=== PATIENT | female | born 1980 | race Caucasian/White ===

== ENCOUNTER 2018-01-17 17:37 | Outpatient (REF) | payer OTHER, SELFPAY ==
--- NOTE | 2018-01-17 16:30 | PAPFT_PTH ---
PATIENT: Cindy Rincon LOC: [facility] U#:[id number] AGE/SX: 37/F ROOM: RE01/17/[address]: Alexandra Llanos APRN : 1980 BED: DIS: 01/17/2018 SPEC #: [id number] RECD: 01/17/18 18:18 STATUS: [place] RETigist #: [id number] JUANI: 01/17/18 16:[address]: Alexandra Llanos DEPT: [facility], [facility] Cytology RECD BY: Jihan Gardiner Tissues: 1 - CX/ENDOCX FOR PAP SMEARS Procedures: PAP THIN PREP/UVM Screening HPV DNA PROBE Comments: [id number]
== END 2018-01-17 17:57 ==
LOC: LBN 17:37
DX: Z12.4 Encounter for screening for malignant neoplasm of cervix (principal); Z11.51 Encounter for screening for human papillomavirus (HPV)
CPT/HCPCS: 88142; 87624

== ENCOUNTER 2018-01-24 08:58 | Outpatient (CLI) | payer OTHER, SELFPAY ==
[2018-01-24 10:29] LABS: ALT 21 U/L (12-78); AST 16 U/L (15-37); Albumin 3.7 g/dL (3.4-5.0); Alkaline Phosphatase 66 U/L (46-116); Anion Gap 8.3 mmol/L (3-11); BUN 12 mg/dL (7-18); Bilirubin, Total 0.9 mg/dL (0.2-1.0); CO2 27.7 mmol/L (21.0-32.0); CREATININE 0.82 mg/dL (0.55-1.02); Calcium 8.7 mg/dL (8.5-10.1); Chloride 106 mmol/L (98-107); Cholesterol 179 mg/dL (50-200); Glucose 85 mg/dL (70-100); HDL Cholesterol 57 mg/dL (40-60); LDL CHOLESTEROL 110 mg/dL (<100); Potassium 4.7 mmol/L (3.5-5.1); Sodium 142 mmol/L (136-145); Total Protein 7.2 g/dL (6.4-8.2); Triglyceride 67 mg/dL (30-150)
== END 2018-01-24 09:18 ==
DX: Z13.220 Encounter for screening for lipoid disorders (principal); Z13.228 Encounter for screening for other metabolic disorders
CPT/HCPCS: 36415; 80053; 80061; 83721

== ENCOUNTER 2018-06-06 08:11 | Day surgery (SDC) | payer OTHER, SELFPAY ==
--- NOTE | 2018-06-06 06:39 | W.PM.ENDDOP ---
Date of service: 06/06/18 Time of Service: 09:08 Endoscopy Report DATE OF PROCEDURE: 06/06/18 PRE-OP DIAGNOSIS: Abdominal pain/ Diarrhea POST-OP DIAGNOSIS: other (mild gastritis/ normal colon) PROCEDURE: 1. EGD with biopsies 2. Colonoscopy with random biopsies SURGEON: Carmen Webb ANESTHESIA: MAC (Lennox Dudley, SOFTWARE REVERSE ENGINEER/ ASA 2) ESTIMATED BLOOD LOSS: 10 PATHOLOGY: other (Gastric bx, terminal ileum Bx, right colon, transverse colon and left colon) COMPLICATIONS: None DISPOSITION: no change INDICATIONS: Mrs. Rincon is a pleasant 38 year old female who was seen in the office with abdominal pain and diarrhea which is intermittent. Risks, benefits and complications have been reviewed. Complications include but are not limited to bleeding, pain, perforation, missed small lesion/polyp, sore throat, aspiration and adverse reaction to the medications. Questions were entertained and answered to their satisfaction and they wished to proceed. No guarantees were given or implied. PREP: Miralax/Dulcolax PROCEDURE START TIME: :08 PROCEDURE END TIME: :51 COLONOSCOPY RETRACTION TIME: 25 minutes FINDINGS: Mild gastritis, normal duodenum and normal esophagus Normal colon. Random biopsies done of the colon. PROCEDURE DESCRIPTION: After informed consent was obtained the patient was take to the procedure room and placed in a supine position. Monitors were applied and a time out was done. The patients name, date of , procedure type, allergies to medications and metal in their body was reviewed. A bite block was placed and the patient was sedated. Once sedated and comfortable the gastroscope was advanced through the oropharynx which was grossly normal into the esophagus. The proximal and mid-esophagus and distal esophagus were normal. The scope was advanced into the stomach and through the pylorus into the 3rd portion of the duodenum. The duodenum was noted to be normal. Biopsies were done to rule out Celiac. The scope was retracted back into the stomach and biopsies were done to rule out H. pylori. There were no ulcers. The scope was retroflexed. The cardia and fundus were noted to be normal. There was no hiatal hernia noted. The scope was retracted back into the esophagus. The Z line was regular. The GE junction was at 35 cm. While the patient was still sedated they were placed in a left decubitous position. A rectal exam was done. External exam was normal. Internal exam revealed a normal sphincter tone and no palpable masses. The scope was then introduced and retro-flexed. Small internal hemorrhoids were identified. The scope was then advanced to the cecum without difficulty. The TI and appendiceal orifice were identified. The prep was good. The sscope was advanced into the terminal ileum for 10 cm and biopsies were done. No inflammation of ulcers were noted. The scope was then slowly retracted over 25 minutes back into the rectum. Random biopsies were done of the left colon, transverse colon and right colon to rule out microscopic colitis. The scope was removed and the patient was woken up and taken back to Same day surgery in stable condition. The patient tolerated the procedure well and there were no immediate complications. Follow up: I will call patient with results.
--- NOTE | 2018-06-06 06:40 | W.PM.DSUDISC ---
Discharge Plan Disposition Patient Disposition: HOME Condition: Good Discharge Details Reason For Visit: abdominal pain and diarrhea Attending Provider: Carmen Webb Primary Care Provider: Alexandra Llanos Home Meds and New Rx's Prescriptions: New ranitidine HCl [Zantac] 150 mg tablet 150 mg PO DAILY Qty: 30 RF: 0 Continued fexofenadine 180 mg tablet 180 mg PO DAILY PRNRF: 0 norgestimate-ethinyl estradiol 0.18/0.215/0.25 mg-35 mcg (28) tablet 1 tab PO DAILY Qty: 84 RF: 4 Ashghawandha 2 drp PO DAILY RF: 0 cholecalciferol (vitamin D3) [Vitamin D3] 1,000 unit Capsule 1,000 unit PO BID RF: 0 Discharge Instructions Instructions: Colonoscopy (DC), Upper Endoscopy (DC) Additional Instructions: Findings: Mild gastritis otherwise normal Follow up:I will call you with results and discuss next steps Please call if you develop: fevers >101.5 Nausea or Vomiting Abdominal pain that is not transient DAY SURGERY UNIT POST COLONOSCOPY INSTRUCTIONS 1. Because there will be medication in your system for the next 24 hours, you may feel a little sleepy. Your coordination will be affected. Therefore: a. Do not drive or operate dangerous equipment for 24 hours. b. Do not drink alcohol beverages for 24 hours (not even beer). c. Plan to go home and rest for the day. 2. Generally there are no restrictions on your activity after a day or so has gone by, but you may feel a bit fatigued for a few days. 3 After you arrive home you may have a light meal and return to a normal diet as you can tolerate it without feeling sick to your stomach. 4. After surgery, you may feel pain or discomfort. This should be only transient, but if it persists please contact your doctor. 5. If there are any questions regarding the findings of your procedure, please feel free to contact your doctor. 6. If you are unable to contact your doctor with a problem, contact the hospital at [phone]. 7. Continue all your regular medications unless directed otherwise. I understand the above instructions and have no questions. Signature of Patient or Responsible Adult Escort Date/Time Name of Responsible Adult Escort Signature of Nurse Date/Time Activity:: Activity as Tolerated Diet:: As Tolerated Discharge Orders Discharge Orders: Discharge Order (Routine); Ordered 06/06/18 Ordered By: Carmen Webb DS: Diagnosis Discharge Diagnosis (1) S/P colonoscopy: Status: Acute (2) H/O esophagogastroduodenoscopy: Status: Chronic (3) Gastritis: Status: Acute
[2018-06-06 08:29] VITALS: BP 118/74; PULSE 67; RESP 16; TEMP 36.3; O2SAT 100
[2018-06-06] MEDS: Lactated Ringers 1,000 ML 80 ML IV (08:45)
--- NOTE | 2018-06-06 09:11 | BOWEL_PTH ---
PATIENT: Cindy Rincon LOC: [facility] U#:[id number] AGE/SX: 38/F ROOM: RE06/06/[address]: Carmen Webb MD : 1980 BED: DIS: 06/06/2018 SPEC #: [id number] RECD: 06/06/18 12:49 STATUS: [place] RE #: [id number] JUANI: 06/06/18 09:[address]: Carmen Webb DEPT: Surgical Specimen RECD BY: Jihan Gardiner ENTERED: 06/06/18 12:52 SP TYPE: Bowel OTHR DR: Alexandra Llanos APRN Tissues: 1 - BIOPSY BOWEL 2 - STOMACH BIOPSY 3 - BIOPSY BOWEL 4 - BIOPSY BOWEL 5 - BIOPSY BOWEL 6 - BIOPSY BOWEL Procedures: GROSS AND MICRO LEVEL 4 Comments: [id number]
[2018-06-06 10:21] VITALS: BP 108/75; PULSE 58; RESP 16; TEMP 36; O2SAT 100
== END 2018-06-06 10:52 | disposition home or self-care (01) ==
LOC: SUR 08:12
PROVIDERS: Visit Provider Surgery
PROC: (CPT 45380; principal; 2018-06-06 09:15)
DX: R19.7 Diarrhea, unspecified (principal); K64.0 First degree hemorrhoids; R10.30 Lower abdominal pain, unspecified; K31.89 Other diseases of stomach and duodenum
CPT/HCPCS: 45380; 43239; 81025; 88305

== ENCOUNTER 2019-02-02 09:32 | Outpatient (CLI) | payer OTHER, SELFPAY ==
[2019-02-02 11:01] LABS: ALT 19 U/L (14-59); AST 12 U/L (15-37); Albumin 3.7 g/dL (3.4-5.0); Alkaline Phosphatase 56 U/L (46-116); Anion Gap 7.5 mmol/L (3-11); BUN 12 mg/dL (7-18); Bilirubin, Total 0.6 mg/dL (0.2-1.0); CO2 27.5 mmol/L (21.0-32.0); Calcium 8.7 mg/dL (8.5-10.1); Chloride 106 mmol/L (98-107); Glucose 84 mg/dL (70-100); Potassium 4.9 mmol/L (3.5-5.1); Sodium 141 mmol/L (136-145); Total Protein 6.9 g/dL (6.4-8.2)
== END 2019-02-02 09:52 ==
DX: Z00.00 Encounter for general adult medical examination without abnormal findings (principal); Z13.228 Encounter for screening for other metabolic disorders
CPT/HCPCS: 36415; 80053

== ENCOUNTER 2019-02-26 20:05 | Outpatient (REF) | payer OTHER, SELFPAY | END 2019-02-26 20:25 | LOC: LBN 20:05 | PROVIDERS: Visit Provider Nurse Practitioner Women's Health | DX: R30.0 Dysuria (principal) | CPT/HCPCS: 87077; 87086; 87186 ==

== ENCOUNTER 2019-07-18 02:09 | Outpatient (CLI) | payer OTHER, SELFPAY ==
--- NOTE | 2019-07-18 13:00 | DI.CT_ITS ---
EXAM: CT HEAD CERVICAL SPINE WO CLINICAL HISTORY: head injury, S09.90XA. TECHNIQUE: Imaging Protocol: Axial computed tomography images with coronal and sagittal reformatted images were created and reviewed COMPARISON: No exams were available for comparison FINDINGS: Head CT Ventricles and Extra axial spaces: Normal in size and morphology for the patient's age. Hemorrhage: None. Cerebral parenchyma: Normal. Midline shift: None. Brainstem/Cerebellum: Normal. Calvarium: Normal. Visualized Paranasal sinuses/Mastoids: Clear. IMPRESSION: Negative head CT. FINDINGS: Cervical Spine CT BONES: Vertebral body heights are maintained. Intervertebral disc spaces are normal. Alignment is nor mal. There is no evidence of acute fracture. SOFT TISSUES: No paraspinal hematoma. The airway appears intact. IMPRESSION: Negative CT of the cervical spine. RADIATION DOSE DELIVERED: DATA REPOSITORY: All CT scans at this facility are submitted to the National Radiology Data Registry (NRDR) Dose Index Registry (DIR) with the [employer] (ACR). RADIATION OPTIMIZATION: All CT scans at this facility use at least one of these dose optimization te chniques: automated exposure control; mA and/or kV adjustment per patient size (includes targeted exa ms where dose is matched to clinical indication); or iterative reconstruction.
== END 2019-07-18 02:29 ==
PROVIDERS: Visit Provider Internal Medicine
DX: M54.2 Cervicalgia (principal); S09.8XXA Other specified injuries of head, initial encounter
CPT/HCPCS: 70450; 72125

== ENCOUNTER 2020-01-28 02:08 | Outpatient (CLI) | payer OTHER, SELFPAY ==
[2020-01-28 10:13] LABS: ALT 19 U/L (14-59); AST 13 U/L (15-37); Albumin 3.6 g/dL (3.4-5.0); Alkaline Phosphatase 50 U/L (46-116); Anion Gap 9.1 mmol/L (3-11); BUN 13 mg/dL (7-18); Bilirubin, Total 0.8 mg/dL (0.2-1.0); CO2 25.9 mmol/L (21.0-32.0); CREATININE 0.81 mg/dL (0.55-1.02); Calcium 8.8 mg/dL (8.5-10.1); Chloride 105 mmol/L (98-107); Glucose 84 mg/dL (74-106); Potassium 4.5 mmol/L (3.5-5.1); Sodium 140 mmol/L (136-145); Total Protein 6.7 g/dL (6.4-8.2)
== END 2020-01-28 02:28 ==
DX: Z00.00 Encounter for general adult medical examination without abnormal findings (principal); K90.0 Celiac disease; N39.3 Stress incontinence (female) (male)
CPT/HCPCS: 36415; 80053

== ENCOUNTER 2020-03-10 12:54 | Outpatient (REF) | payer OTHER, SELFPAY ==
[2020-03-12 16:55] LABS: Chlamydia Result Negative (Negative)
[2020-03-12 16:56] LABS: GC Result Negative (Negative)
== END 2020-03-10 13:14 ==
LOC: LBN 12:54
DX: R10.2 Pelvic and perineal pain (principal); N89.8 Other specified noninflammatory disorders of vagina
CPT/HCPCS: 87491; 87591; 87480; 87510; 87660

== ENCOUNTER 2020-03-20 01:21 | Outpatient (CLI) | payer OTHER, SELFPAY ==
--- NOTE | 2020-03-20 06:45 | DI.US_ITS ---
EXAM: US PELVIS TRANSVAGINAL CLINICAL HISTORY: Pelvic and low lumbar bilateral pain with vaginal DISCHARGE,R10.2,N98.8. TECHNIQUE: Transabdominal and transvaginal pelvic ultrasound was performed using standard protocol. COMPARISON: US OB ASSESSMENT - WEIGHT/GLORIA from 04/29/2015 FINDINGS: KIDNEYS: Kidneys are symmetric in size. No evidence of renal calculi. No evidence of hydronephrosis. No renal mass or cyst identified. UTERUS: Position: Anteverted. Size: 7.2 long by 3.5 AP by 4.9 transverse cm Endometrium: 0.5 cm. Normal for patient's menstrual status. Myometrium: 4 mm echogenic focus in the posterior midbody of the uterus. This may represent a calcif ied uterine fibroid. Cervix: Unremarkable. OVARIES: Right: 2.8 x 1.7 x 1.6 cm Cyst or mass: Small follicular cysts. Left: 2.9 x 1 x 1.4 cm Cyst or mass: Small follicular cysts. DOPPLER: Color: Symmetric and uniform flow to both ovaries. No hyperemia. Duplex: Normal ovarian arterial waveforms visualized. CUL-DE-SAC: Free fluid: None. Other: None. IMPRESSION: 1. Normal sonographic appearance of the kidneys. 2. Normal-appearing uterus with endometrial stripe within normal limits. 3. Unremarkable bilateral ovaries. DATA REPOSITORY:
== END 2020-03-20 01:41 ==
DX: R10.2 Pelvic and perineal pain (principal); N89.8 Other specified noninflammatory disorders of vagina
CPT/HCPCS: 76830; 76856

== ENCOUNTER 2020-05-12 16:03 | Emergency (ER) | payer OTHER, SELFPAY ==
[2020-05-12] VITALS (25 sets, daily range): BP systolic 114–129; BP diastolic 60–75; PULSE 62–87; RESP 12–20; TEMP 36.4–36.6; O2SAT 97–100
--- NOTE | 2020-05-12 16:18 | ED.GENADUL_ITS ---
Discharge Plan Disposition Patient Disposition: HOME Condition: Stable Discharge Details Clinical Impression: Allergic reaction Primary Care Provider: Alexandra Llanos ED Provider: Marianne Jain Home Meds and New Rx's Prescriptions: New prednisone 20 mg tablet 40 mg PO DAILY Qty: 8 RF: 0 epinephrine [EpiPen] 0.3 mg/0.3 mL auto-injector 0.3 mg IM ONCE Qty: 1 RF: 0 No Action Adult Multivitamin Gummies 200 mcg tablet,chewable PO RF: 0 norgestimate-ethinyl estradiol 0.18/0.215/0.25 mg-35 mcg (28) tablet 1 tab PO DAILY Qty: 84 RF: 4 cholecalciferol (vitamin D3) [Vitamin D3] 1,000 unit Capsule 1,000 unit PO BID RF: 0 Discharge Instructions Instructions: General Allergic Reaction (ED) Additional Instructions: You have elected to leave for the recommended 4-hour observation period has been completed. The risks of doing so are permanent disability or . You may return to the emergency department at anytime if you change your mind. Please return immediately to the emergency department if you develop any new or worsening symptoms, if your condition does not improve as expected, or if you become otherwise concerned. It is extremely important that you call soon as possible to make an appointment to be seen in follow-up for this visit by your primary care doctor. Please contact the Department of Health as we discussed regarding your second COVID-19 vaccination dose. Referrals: Alexandra Llanos, BEATER ENGINEER HELPER [Primary Care Provider] - Discharge Data Discharge Date/Time-TO BE ENTERED AT DEPARTURE: 05/12/20 19:12 Medical Decision Making Cindy Rincon is a 40-year-old woman without reported history of major medical problems who presented to the emergency department with itchy rash to her scalp, bilateral forearms, upper back after receiving first dose of COVID-19 vaccination approximately 40 minutes prior to arrival. On exam patient is well and nontoxic-appearing. There is no facial or oropharyngeal edema, lungs are clear to auscultation, patient speaking in full sentences. There is confluent erythema bilateral dorsal forearms without urticaria. No other rash noted. Concern for likely allergic reaction to first dose COVID-19 vaccination. Exam/history is not consistent with impending airway compromise. Plan for Benadryl, Pepcid, Solu-Medrol, IV fluid hydration, IV, telemetry. Will monitor and reassess. 1645 patient reports rash and itching somewhat improved, she reports feeling a sensation of throat tightness since receiving Benadryl. Normal voice. Exam of the oropharynx unchanged from examination upon arrival. Pt reports feeling the need to clear her throat repeatedly. Given new concern for possible airway involvement, plan for IM epinephrine. Will continue to monitor. 1705 patient reports feeling significantly improved after epinephrine. Will continue to monitor. Pt reporting no further symptoms, feels well and at baseline. Pt requests d/c to home. 4 hour observation period has not passed, concern for possible rebound symptoms which I relyaed to the Pt, including risk of /permanent disability. Pt verbalizes understanding of the risks, continues to wish to leave. Plan for rx prednisone, epipen. I had a lengthy discussion with Patient regarding return to emergency department precautions, home care, home use of epi-pen, and importance of outpatient follow-up. Pt verbalizes understanding of the plan and is amenable. Patient discharged to home with clear plan for outpatient follow-up. All questions were answered. Disposition decision was made weighing the risks and benefits of hospitalization versus outpatient treatment, the risk for further decompensation, and the patient's wishes. Medical Records Medical records reviewed: Yes I reviewed the patient's medical records. HPI General Mode of arrival: ambulatory . Date/Time Provider Initiated Documentation: 05/12/20 16:13 . Limitations to Documentation: no limitations . Information obtained by: patient, RN notes reviewed and old records reviewed . HPI Narrative: Cindy Rincon is a 40-year-old woman without reported history of major medical problems presenting to the emergency department with allergic reaction. Patient reports that approximately 40 minutes prior to arrival she received the first dose of the Covid-19 vaccination. Patient reports that approximately 5 minutes ago she developed itching in her posterior scalp and then noticed redness and itching of bilateral forearms. Patient also reports mild itching of her upper back. She denies any other rash. She denies swelling of her face/lips/tongue, throat tightness, shortness of breath. Patient denies any pain. Patient reports that she was previously in her usual state of health: No fever, vomiting, diarrhea, cough, numbness, weakness. Patient reports that she has a known allergy to Keflex: She developed rash after taking Keflex as a child but has not had it since. She denies any other known allergies. She denies any other known new exposures today. Related Data Home Medications Medication Instructions Recorded Confirmed cholecalciferol (vitamin D3) 1,000 unit PO BID 06/02/18 05/12/20 [Vitamin D3] multivitamin with minerals-folic mcg PO 07/09/19 03/13/20 acid 200 mcg chewable tablet norgestimate-ethinyl estradiol 1 tab PO DAILY #84 tab 07/19/19 05/12/20 0.18 mg/0.215mg/0.25mg-35 mcg(28)tablet epinephrine [EpiPen] 0.3 mg IM ONCE #1 ea 05/12/20 prednisone 40 mg PO DAILY #8 tab 05/12/20 Previous Rx's Medication Instructions Recorded norgestimate-ethinyl estradiol 1 tab PO DAILY #84 tab 07/19/19 0.18 mg/0.215mg/0.25mg-35 mcg(28)tablet epinephrine [EpiPen] 0.3 mg IM ONCE #1 ea 05/12/20 prednisone 40 mg PO DAILY #8 tab 05/12/20 Allergies Allergy/AdvReac Type Severity Reaction Status Date / Time cephalexin monohydrate Allergy Severe Skin Rash Verified 05/12/20 16:23 [From L[place]] COVID-19 Virus Vaccines Allergy Intermediate Itchy Verified 05/22/20 17:02 Scalp, forearms,throat tightness General Stated Complaint: Allergic JESÚS: 2 Review of Systems Narrative: Constitutional: denies fevers Eyes: denies eye pain ENT: denies ear pain, dental pain, sore throat, facial swelling/lip swelling/tongue swelling/throat tightness Cardiovascular: denies chest pain, edema Respiratory: denies SOB, cough GI: denies abdominal pain, vomiting, diarrhea : denies flank pain MSK: denies back pain, neck pain, reports myalgia at injection site left upper arm Skin: Reports itching, rash as per HPI Neuro: denies headaches, numbness, weakness PFSH Medical History Adult celiac disease Suggested per scope pathology 05/2018 Alcohol intake above recommended sensible limits Encounter for annual physical exam Idiopathic Narcolepsy Pelvic pain Stress and adjustment reaction Stress incontinence Umbilical hernia Surgical History section (06/25/15) PCD for arrest of dilation. 41w3d. Ivelisse Mckeon. aoc/DD. Removal benign lesion R breast skin Removal benign lump R axilla 2011 Family History Father Essential hypertension Heart disease Hyperlipidemia Alcohol abuse Lung cancer Mother Leukemia Sister Fibroid of cervix Brother No problems noted. Maternal Grandfather Skin cancer Paternal Grandmother Essential hypertension Diabetes Son No problems noted. Daughter No problems noted. Social History Smoking/Tobacco Use Status: Former Tobacco Use Quit Date: 05/09/12 Tobacco: How many years used: 5 Second Hand Exposure: Yes Smoking risk assessment performed?: Yes Alcohol Intake: current Alcohol Intake frequency: 3 or more drinks per day Alcohol type: wine Drug use: Never Substance use type: does not use Counseling given: No Counseling provided: none Caregiver/Support person: No Household members: spouse, children and other Details: 4 Housing: house Communication Needs: None Do you need help understanding health information?: Never current occupation: [employer] Pets and animals: Yes Pets and animals: cat(s) and dog(s) Sexually active: Yes Do you think of yourself as: straight/heterosexual Current gender identity: female What is your relationship status?: How often do you talk on the phone with friends or family?: three or more times per week How often do you get together with friends or relatives?: twice per week How often do you attend jainism or yazidi services?: 1-3 times per year Do you belong to any clubs or organized social groups?: yes Panel score (0-1 are the most socially isolated patients): 3 What type of physical activity do you participate in: none and additional Details: Volleyball in season Duration: < 15 minutes/day Frequency: 1-2 times per week Makenna/Cheondoism: Scientologist Special makenna needs: No Seatbelt use: always Helmet use: No Drive intox or ride w/intox industrial truck driver: No Do you feel safe at home: Yes Do you feel safe in your relationship?: Yes Exam Narrative Exam Narrative: Constitutional: well and [id number], pleasant, conversing normally HENT: head atraumatic/normocephalic/normal inspection, mucous membranes moist, no edema of the lips or tongue, normal posterior pharynx, no intraoral lesion, normal voice Eyes: conjunctiva normal, sclera normal, pupils 3mm b/l Neck: no stridor, normal ROM, trachea midline, normal inspection of posterior neck Chest: normal inspection Resp: normal work of breathing, LCTAB Cardio: normal rate, normal rhythm, no murmur appreciated Back: normal inspection of the upper back Skin: warm, dry, normal color, fine urticaria with erythema b/l dorsal and volar forearms Neuro: alert, not altered, grossly non-focal, normal tone Ext: no edema Psych: normal mood, normal affect, normal behavior Course Vital Signs Vital signs: Vital Signs Temperature 36.4 C L 05/12/20 16:08 Pulse 70 05/12/20 16:08 Respiratory Rate 16 05/12/20 16:08 Blood Pressure 126/75 05/12/20 16:08 Pulse Oximetry 100 05/12/20 16:08 Temperature 36.4 C L 05/12/20 16:08 Temperature Source Skin 05/12/20 16:08 Pulse 70 05/12/20 16:08 Respiratory Rate 16 05/12/20 16:08 Blood Pressure 126/75 05/12/20 16:08 Blood Pressure Position Sitting 05/12/20 16:08 Pulse Oximetry 100 05/12/20 16:08 Oxygen Delivery Method Room Air 05/12/20 16:08 Oxygen Flow Rate 0 05/12/20 16:08 Pain Level 2 05/12/20 16:08
[2020-05-12] MEDS: methylPREDNISolone SUCC 125 MG VIAL IVP (16:26)
[2020-05-12] MEDS: Normal Saline 1,000 ML 1000 ML IV (16:26)
[2020-05-12] MEDS: diphenhydrAMINE 50 MG/ML VIAL IVP (16:29)
[2020-05-12] MEDS: FAMOTIDINE 20 MG/50 ML BAG 200 MG IVPB (16:30)
[2020-05-12] MEDS: EPINEPHrine 1 MG/ML AMP pres-free (16:48)
[2020-05-12] MEDS: Normal Saline Flush 10 ML SYR IVP (17:21)
== END 2020-05-12 19:12 | disposition home or self-care (01) ==
PROVIDERS: Emergency Provider Student in an Organized Health Care Education/Training Program
DX: R21 Rash and other nonspecific skin eruption (principal); T50.B95A Adverse effect of other viral vaccines, initial encounter
CPT/HCPCS: 96361; 96374; 96375; 99284; J0171; J1200; J2930

== ENCOUNTER 2020-11-20 09:51 | Outpatient (REF) | payer OTHER, SELFPAY | END 2020-11-20 09:52 | disposition home or self-care (01) | LOC: LBN 09:51 | PROVIDERS: Visit Provider Nurse Practitioner Family | DX: R30.0 Dysuria (principal) | CPT/HCPCS: 87077; 87086; 87186 ==

== ENCOUNTER 2021-01-29 11:35 | Outpatient (REF) | payer OTHER, SELFPAY ==
--- NOTE | 2021-01-29 11:15 | PAPFT_PTH ---
PATIENT: Cindy Rincon LOC: [facility] U#:[id number] AGE/SX: 40/F ROOM: RE01/29/[address]: Alexandra Llanos APRN : 1980 BED: DIS: 01/29/2021 SPEC #: [id number] RECD: 01/29/21 12:59 STATUS: [facility] REQ #: [id number] JUANI: 01/29/21 11:[address]: Alexandra Llanos DEPT: [facility] Cytology RECD BY: Jihan Gardiner Tissues: 1 - CX/ENDOCX FOR PAP SMEARS Procedures: PAP THIN PREP/UVM Screening HPV DNA PROBE Comments: [id number]
== END 2021-01-29 11:36 | disposition home or self-care (01) ==
LOC: LBN 11:35
DX: Z12.4 Encounter for screening for malignant neoplasm of cervix (principal); Z11.51 Encounter for screening for human papillomavirus (HPV)
CPT/HCPCS: 88142; 87624

== ENCOUNTER 2021-02-03 03:55 | Outpatient (CLI) | payer OTHER, SELFPAY ==
[2021-02-03 09:01] LABS: Anion Gap 7.3 mmol/L (3-11); BUN 13 mg/dL (7-18); CO2 28.7 mmol/L (21.0-32.0); Calcium 9.2 mg/dL (8.5-10.1); Chloride 104 mmol/L (98-107); Glucose 89 mg/dL (74-106); Potassium 4.7 mmol/L (3.5-5.1); Sodium 140 mmol/L (136-145)
== END 2021-02-03 03:56 | disposition home or self-care (01) ==
LOC: LBO 03:56
DX: Z00.00 Encounter for general adult medical examination without abnormal findings (principal)
CPT/HCPCS: 36415; 80048

== ENCOUNTER 2021-06-23 18:32 | Outpatient (REF) | payer OTHER, SELFPAY | END 2021-06-23 18:33 | disposition home or self-care (01) | LOC: LBN 18:32 | PROVIDERS: Visit Provider Family Medicine | DX: R31.9 Hematuria, unspecified (principal) | CPT/HCPCS: 87086 ==

== ENCOUNTER 2021-10-16 20:12 | Outpatient (REF) | payer OTHER, SELFPAY | END 2021-10-16 20:13 | disposition home or self-care (01) | LOC: LBN 20:12 | PROVIDERS: Visit Provider Nurse Practitioner Family | DX: N39.0 Urinary tract infection, site not specified (principal) | CPT/HCPCS: 87077; 87086; 87186 ==

== ENCOUNTER 2021-12-02 17:47 | Emergency (ER) | payer OTHER, SELFPAY ==
[2021-12-02 18:12] VITALS: BP 136/105; PULSE 59; RESP 18; TEMP 36.8; O2SAT 100
[2021-12-02] MEDS: Ketorolac 30 MG/ML VIAL IVP (18:49)
[2021-12-02] MEDS: Prochlorperazine 10 MG/2 ML VIAL IVP (18:49)
[2021-12-02] MEDS: Normal Saline 1,000 ML 1000 ML IV (18:49)
[2021-12-02] MEDS: diphenhydrAMINE 50 MG/ML VIAL 25 MG IVP (18:49)
--- NOTE | 2021-12-02 19:30 | ED.GENADUL_ITS ---
Discharge Plan Disposition Patient Disposition: HOME Condition: Improving Discharge Details Clinical Impression: Headache associated with infection, COVID Primary Care Provider: Alexandra Llanos ED Provider: Sd Love Home Meds and New Rx's Prescriptions: No Action cyclobenzaprine 7.5 mg tablet 7.5 mg PO QHS MDD 7.5mg PRN (Reason: muscle spasm) Qty: 10 0RF Adult Multivitamin Gummies 200 mcg tablet,chewable PO phenazopyridine [Pyridium] 200 mg tablet 200 mg PO Q8H PRN (Reason: pain) Qty: 10 0RF norgestimate-ethinyl estradiol 0.18/0.215/0.25 mg-35 mcg (28) tablet 1 tab PO DAILY Qty: 84 4RF cholecalciferol (vitamin D3) [Vitamin D3] 1,000 unit Capsule 1,000 unit PO BID epinephrine [EpiPen] 0.3 mg/0.3 mL auto-injector 0.3 mg IM ONCE Qty: 1 0RF Rx Instructions: as a single dose Discharge Instructions Instructions: General Headache (ED), COVID-19 (Coronavirus Disease 2019) (ED) Additional Instructions: Continue to stay well-hydrated and you may use [id number] ibuprofen after 4 AM in the morning for any further headache or body aches. If you have any new or significant worsening of symptoms feel free to return to the emergency department for reassessment otherwise follow-up with primary care provider if not improving or if you have had cold symptoms greater than 7 to 10 days Referrals: Alexandra Llanos, [facility] [Primary Care Provider] - (As needed for reassessment) Discharge Data Discharge Date/Time-TO BE ENTERED AT DEPARTURE: 12/02/21 19:45 Medical Decision Making Patient presenting to the emergency department for chief complaint of headache. Patient reports that headache started on Tuesday and had slightly improved but then was still not feeling well the next day and tested positive for COVID. Patient has been quarantining but today headache returned and has had significant migraine type symptoms with photophobia. Patient is taking acetaminophen with no benefit. Physical exam shows photophobia otherwise no meningeal signs, no focal neurological deficits, and exam otherwise unremarkable. We will plan to treat with fluids, ketorolac, Benadryl, and Compazine. Patient reassessed and states significant improvement of symptoms. I feel that headache is secondary to viral illness. Discussed with patient at home management of symptoms along with return and follow-up precautions. I see no indication for further testing at this time. Did discuss with patient potential use of antivirals but given that she has otherwise healthy with no significant risk factors she decided to not take these medications which I agree with at this time. After discussion of diagnosis and plan of care patient has no f urther needs, questions, or concerns and states clear understanding to return to the emergency department for any worsening symptoms. This documentation was generated using [employer] dictation system, please disregard any oddities of phrase or misspellings. HPI General Mode of arrival: ambulatory . Date/Time Provider Initiated Documentation: 12/02/21 18:26 . Limitations to Documentation: no limitations . Information obtained by: patient . History of Present Illness 41 year old F presents to the emergency department with the chief complaint of Headache with recent diagnosis of COVID, described as moderate, with intensity rated at 5. Quality is described as aching, and is localized to the head. Patient reports no radiation. Patient started experiencing this day(s) (4) and it has been intermittent. No relieving factors improve symptom(s), No exacerbating factors reported . Patient notes fever/chills and malaise. Patient did receive the following treatments prior to arrival, other (Acetaminophen) Related Data Home Medications Medication Instructions Recorded Confirmed cholecalciferol (vitamin D3) 25 1,000 unit PO BID 06/02/18 12/02/21 mcg (1,000 unit) capsule (Vitamin D3) multivitamin with minerals-folic mcg PO 07/09/19 10/16/21 acid 200 mcg chewable tablet (Adult Multivitamin Gummies) epinephrine 0.3 mg/0.3 mL 0.3 mg (0.3 mL) IM ONCE #1 ea 05/12/20 12/02/21 injection, auto-injector (EpiPen) phenazopyridine 200 mg tablet 200 mg PO Q8H PRN pain #10 tabs 06/23/21 12/02/21 (Pyridium) cyclobenzaprine 7.5 mg tablet 7.5 mg PO QHS PRN muscle spasm #10 08/27/21 12/02/21 tabs norgestimate-ethinyl estradiol 1 tab PO DAILY #84 tabs 10/28/21 12/02/21 0.18 mg/0.215mg/0.25mg-35 mcg(28)tablet Previous Rx's Medication Instructions Recorded epinephrine 0.3 mg/0.3 mL 0.3 mg (0.3 mL) IM ONCE #1 ea 05/12/20 injection, auto-injector (EpiPen) phenazopyridine 200 mg tablet 200 mg PO Q8H PRN pain #10 tabs 06/23/21 (Pyridium) cyclobenzaprine 7.5 mg tablet 7.5 mg PO QHS PRN muscle spasm #10 08/27/21 tabs norgestimate-ethinyl estradiol 1 tab PO DAILY #84 tabs 10/28/21 0.18 mg/0.215mg/0.25mg-35 mcg(28)tablet Allergies Allergy/AdvReac Type Severity Reaction Status Date / Time cephalexin monohydrate Allergy Severe Skin Rash Verified 12/02/21 18:19 [From [employer]] COVID-19 Virus Vaccines Allergy Severe Anaphylactic Verified 12/02/21 18:19 RXN, Itchy Scalp, forearms,throat tightness General Stated Complaint: Headache JESÚS: 4 Review of Systems Constitutional Constitutional: Reports body ache(s), Denies chills, Reports fatigue, Denies fever(s), Reports headache(s) and Reports malaise Eyes Eyes: Denies change in vision and Reports photophobia ENT Ears, Nose, Mouth, and Throat: Denies dizziness and Reports headache(s) Cardiovascular Cardiovascular: Denies chest pain, Denies syncope and Denies dyspnea Respiratory Respiratory: Denies cough, Denies pain with cough and Denies dyspnea Gastrointestinal Gastrointestinal: Denies abdominal pain, Denies nausea and Denies vomiting Musculoskeletal Musculoskeletal: Reports myalgias Integumentary/Breasts Skin/Breast: Denies rash Neurologic Neurologic: Reports as per HPI, Denies dizziness, Denies syncope, Reports headache(s) and Denies sensory deficit Endocrine Endocrine: Reports fatigue PFSH All Active Problems (Updated 12/02/21 @ 19:33 by Sd Love NP) Headache associated with infection (Acute) COVID (Acute) Frequent urinary tract infections (Acute) Spasm of muscle of lower back (Acute) Lumbar back pain with radiculopathy affecting right lower extremity (Chronic) radiates to right hip - since 2021 Allergy, food (Chronic) Adult celiac disease (Chronic) Suggested per scope pathology 05/2018 Umbilical hernia (Chronic) Sciatica (Chronic 08/11/11) left hip Medical History Change in bowel function Urgent and loose stools after exercise with small umbilical hernia. Refer to general surgeon for evaluation. Chronic rhinitis Dyspareunia (04/16/13) Idiopathic Narcolepsy Neck pain Pelvic pain Stress and adjustment reaction Stress incontinence Upper airway resistance syndrome (11/30/13) [facility]; 11/30/13 [facility]; 01/03/14 RX METHYLPHENIDATE PER SLEEP CLINIC Surgical History (Updated 09/18/21 @ 15:03 by Alexandra Llanos NP) section (06/25/15) PCD for arrest of dilation. 41w3d. Ivelisse Mckeon. aoc/DD. H/O esophagogastroduodenoscopy (~06/06/18) Removal benign lesion R breast skin Removal benign lump R axilla 2012 S/P colonoscopy (~06/06/18) Family History (Updated 01/30/21 @ 15:48 by Kathy White) Father , 72 Essential hypertension Heart disease Hyperlipidemia Alcohol abuse Lung cancer Mother Leukemia Sister Fibroid of cervix Brother No problems noted. Maternal Grandfather Skin cancer Paternal Grandmother Essential hypertension Diabetes Son No problems noted. Daughter No problems noted. Social History (Updated 01/30/21 @ 15:47 by Kathy White) Smoking/Tobacco Use Status: Former Tobacco Use tobacco type: cigarettes Quit Date: 05/09/12 Tobacco: How many years used: 5 Second Hand Exposure: Yes Smoking risk assessment performed?: Yes Alcohol Intake: current Alcohol Intake frequency: a few times a week Alcohol type: wine Drug use: Never Substance use type: does not use Counseling given: No Counseling provided: none Household members: spouse and children Housing: house Communication Needs: None Do you need help understanding health information?: Rarely current occupation: HIGH LIFT OPERATOR [employer] Pets and animals: Yes Pets and animals: cat(s), dog(s), horse(s) and farm animals Sexually active: Yes Do you think of yourself as: straight/heterosexual Current gender identity: female What is your relationship status?: How often do you talk on the phone with friends or family?: three or more times per week How often do you get together with friends or relatives?: three or more times per week How often do you attend anabaptist or evangelical services?: 1-3 times per year Do you belong to any clubs or organized social groups?: yes Panel score (0-1 are the most socially isolated patients): 3 What type of physical activity do you participate in: bicycling, weight lifting and yoga Duration: 45-60 minutes/day Frequency: 5-6 times per week Makenna/Taoist: Christianity Special makenna needs: No Seatbelt use: always Helmet use: Yes Helmet use: always Drive intox or ride w/intox charter driver: No Do you feel safe at home: Yes Do you feel safe in your relationship?: Yes Female Reproductive History Menstrual Date of last menstrual period: 11/27/21 Exam Const General: cooperative, healthy appearing, no acute distress and well groomed Orientation: alert, awake and oriented x3 HENMT Head: normal to inspection Ears: hearing grossly normal bilaterally and TM's normal bilaterally Mouth: oral mucosae normal and moist mucous membranes Throat: posterior oropharynx normal Eyes Visual Olivo: normal visual olivo by confrontation Alignment and Position: alignment normal Periorbital: periorbital findings normal Eyelids: eyelids normal Sclera: sclerae normal Pupils: PERRL EOM: EOM intact bilaterally Direct ophthalmoscopy: photophobia Neck Neck: normal visual inspection, full ROM, no lymphadenopathy and no meningeal signs Resp Effort & Inspection: normal respiratory effort and able to speak in complete sentences Auscultation: clear to auscultation bilaterally Cardio Rate: regular rate Rhythm: regular rhythm Heart Sounds: S1 normal and S2 normal Neuro General: patient alert, patient awake, patient oriented x3, gait normal, tone normal, moves all extremities, CN's II-XI intact bilaterally and not confused Cognition: normal cognition Speech: speech normal Motor: muscle tone normal throughout, strength 5/5 throughout, no pronator drift, no movement abnormalities noted and no fasciculations Sensory Exam: no sensory deficits noted Coordination: [id number] test normal, Romberg test normal, Does not sway with eyes open, rapid alternating movement UE normal and rapid alternating movement LE normal Course Vital Signs Vital signs: Vital Signs Temperature 36.8 C 12/02/21 18:12 Pulse 59 L 12/02/21 18:12 Respiratory Rate 18 12/02/21 18:12 Blood Pressure 136/105 H 12/02/21 18:12 Pulse Oximetry 100 12/02/21 18:12 Temperature 36.8 C 12/02/21 18:12 Temperature Source Temporal Artery Scan 12/02/21 18:12 Pulse 59 L 12/02/21 18:12 Respiratory Rate 18 12/02/21 18:12 Respiratory Effort Non-Labored 12/02/21 18:17 Blood Pressure 136/105 H 12/02/21 18:12 Blood Pressure Position Sitting 12/02/21 18:12 Pulse Oximetry 100 12/02/21 18:12 Oxygen Delivery Method Room Air 12/02/21 18:12 Oxygen Flow Rate 0 12/02/21 18:12 Pain Level 5 12/02/21 18:17 PAWSS Have you Been Recently Intoxicated or Drunk Within the Last 30 days?: No Have you Ever Experienced Previous Episodes of Alcohol Withdrawal?: No Have you ever Experienced Withdrawal Seizures?: No Have you ever Experienced Delirium Tremens(DT)s?: No Have you ever undergone Alcohol Rehabilitation Treatment (i.e, inpt ot outpatient treatment programs)?: No Have you ever Experienced Blackouts?: No Have you ever Combined Alcohol with other Downers within the last 90 days?: No Have you ever Combined Alcohol with any other Substance of Abuse during the last 90 days?: No Result: 0
== END 2021-12-02 19:45 | disposition home or self-care (01) ==
LOC: ER 19:37
PROVIDERS: Emergency Provider Nurse Practitioner Family
DX: U07.1 COVID-19 (principal); H53.149 Visual discomfort, unspecified; Z87.891 Personal history of nicotine dependence
CPT/HCPCS: 96361; 96374; 96375; 99284; J0780; J1200; J1885

== ENCOUNTER 2022-03-18 11:54 | Outpatient (CLI) | payer OTHER, SELFPAY ==
[2022-03-18 14:07] LABS: Abs Immature Grans 0.01 10^3/uL (0.0-0.06); Absolute Basophil Count 0.03 10^3/uL (0.0-0.2); Absolute Eosinophil Count 0.05 10^3/uL (0.0-0.7); Absolute Lymphocyte Count 2.35 10^3/uL (1.2-3.4); Absolute Monocyte Count 0.72 10^3/uL (0.1-0.8); Absolute Neutrophil Count 4.11 10^3/uL (1.2-6.7); Basophils % 0.4; Eosinophils % 0.7; HCT 40.3 % (36.0-46.0); HGB 12.9 g/dL (11.2-15.7); Immature Grans % 0.1; Lymphocytes % 32.3; MCH 30.5 pg (27.0-33.0); MCV 95 fL (80-95); MPV 11.4 fL (8.0-11.0); Monocytes % 9.9; Neutrophils % 56.6; Platelet Count 234 10^3/uL (130-400); RBC 4.23 10^6/uL (3.93-5.22); RDW 11.9 % (11.7-14.6); RDW-SD 41.3 fL; WBC 7.27 10^3/uL (4.4-10.8)
== END 2022-03-18 11:55 | disposition home or self-care (01) ==
LOC: LBO 11:55
PROVIDERS: PCP Nurse Practitioner Family; Visit Provider Nurse Practitioner Family
DX: R53.83 Other fatigue (principal)
CPT/HCPCS: 36415; 85025

== ENCOUNTER → 2022-04-06 02:26 | Outpatient (CLI) | payer OTHER, SELFPAY ==
--- NOTE | 2022-04-06 06:30 | DI.MAMMO_ITS ---
Exam(s) MAMMO SCREENING EXAM: MAMMO SCREENING CLINICAL HISTORY: screening,Z12.39 TECHNIQUE: Bilateral full field digital CC and MLO mammographic images were obtained with 3D tomosyn thesis and utilizing computer aided detection (CAD). COMPARISON: None. FINDINGS: Masses/Architectural Distortion: None seen. Microcalcifications: No suspicious pleomorphic-type are seen. Skin Thickening/Nipple Retraction: None. IMPRESSION: 1. No significant interval change with no specific features of malignancy noted. 2. Unless there is more urgent need, screening mammography is recommended, as per [place] [employer] guidelines. BI-RADS Category 1 - Negative Breast Density - Category C - Heterogeneously dense Breast density category C or D implies that the patient has dense breast tissue. Dense breast tissue is very common and is not abnormal but dense breast tissue can make it harder to find cancer on a ma mmogram. Also, dense breast tissue may increase their breast cancer risk. This information about the result of the mammogram report was provided to the patient to raise their awareness. Use this report when you speak with the patient about their risks for breast cancer, which includes their family hist ory. At that time, you may recommend for more screening tests (Ultrasound or MRI) as they might be us eful based on their risk. A negative radiographic report should not delay biopsy if a dominant or clinically suspicious mass is present. Up to ten percent of cancers are not identified on mammography. A negative report may reinforce clinical impression. Adenosis and dense breasts may obscure an underlying neoplasm. False positive reports average 6 to 10%. Patient will receive a letter notifying them of these results.
== END ==
PROVIDERS: PCP Nurse Practitioner Family; Visit Provider Nurse Practitioner Family
DX: Z12.31 Encounter for screening mammogram for malignant neoplasm of breast (principal); R92.8 Other abnormal and inconclusive findings on diagnostic imaging of breast
CPT/HCPCS: 77063; 77067

== ENCOUNTER 2024-03-21 11:42 | Outpatient (CLI) | payer OTHER, SELFPAY ==
[2024-03-21 11:40] LABS: Abs Immature Grans 0.02 10^3/uL (0.0-0.06); Absolute Basophil Count 0.05 10^3/uL (0.0-0.2); Absolute Eosinophil Count 0.05 10^3/uL (0.0-0.7); Absolute Lymphocyte Count 2.83 10^3/uL (1.2-3.4); Absolute Neutrophil Count 4.71 10^3/uL (1.2-6.7); Basophils % 0.6 %; Eosinophils % 0.6 %; HCT 37.3 % (36.0-46.0); HGB 11.8 g/dL (11.2-15.7); Immature Grans % 0.2 %; Lymphocytes % 34.7 %; MCH 30.4 pg (27.0-33.0); MCHC 31.6 % (32.0-36.0); MCV 96 fL (80-95); MPV 11.5 fL (8.0-11.0); Monocytes % 6.1 %; Neutrophils % 57.8 %; Platelet Count 289 10^3/uL (130-400); RBC 3.88 10^6/uL (3.93-5.22); RDW 12.2 % (11.7-14.6); RDW-SD 43.3 fL; WBC 8.16 10^3/uL (4.4-10.8)
[2024-03-21 12:01] LABS: ALT 20 U/L (14-59); AST 12 U/L (15-37); Albumin 3.7 g/dL (3.4-5.0); Alkaline Phosphatase 49 U/L (46-116); Anion Gap 7.1 mmol/L (3-11); BUN 9 mg/dL (7-18); Bilirubin, Total 0.77 mg/dL (0.2-1.0); CO2 28.9 mmol/L (21.0-32.0); CREATININE 0.8 mg/dL (0.55-1.02); Calcium 9.2 mg/dL (8.5-10.1); Calculated LDL 110 mg/dL (<100); Chloride 104 mmol/L (98-107); Cholesterol 195 mg/dL (<200); Estimated GFR 94.87 (mL/min/1.73m2); Glucose 91 mg/dL (74-106); HDL Cholesterol 65 mg/dL (40-60); Potassium 4.4 mmol/L (3.5-5.1); Sodium 140 mmol/L (136-145); TSH (W/Ref FT4) 2.08 uIU/mL (0.36-3.74); Total Protein 7.5 g/dL (6.4-8.2); Triglyceride 102 mg/dL (<150)
[2024-03-21 19:22] LABS: HIV-1/2 Ag & Ab Screen Negative (Negative)
[2024-03-21 19:37] LABS: Hepatitis C Ab w Rflx HCV PCR Negative (Negative)
[2024-03-22 10:26] LABS: Lyme Ab w Rflx to Lyme Confirm Negative (Negative)
[2024-03-22 13:30] LABS: Lab Add On Test DONE
[2024-03-22 14:12] LABS: Vitamin B12 454 pg/mL (193-986)
[2024-03-22 22:28] LABS: Folate 16.4 ng/mL (See Note)
[2024-03-25 16:10] LABS: Anaplasma phagocytophilum Negative (Negative); B. miyamotoi PCR Negative (Negative); Babesia divergens/MO-1 Negative (Negative); Babesia duncani Negative (Negative); Babesia microti Negative (Negative); Ehrlichia chaffeensis Negative (Negative); Ehrlichia ewingii/canis Negative (Negative); Ehrlichia muris eauclairensis Negative (Negative)
== END 2024-03-21 11:43 | disposition home or self-care (01) ==
LOC: LBO 11:43
PROVIDERS: PCP Nurse Practitioner Family; Visit Provider Nurse Practitioner Family
DX: Z13.220 Encounter for screening for lipoid disorders; R53.83 Other fatigue; Z11.59 Encounter for screening for other viral diseases; Z11.4 Encounter for screening for human immunodeficiency virus [HIV]; D75.89 Other specified diseases of blood and blood-forming organs
CPT/HCPCS: 36415; 80053; 80061; 86803; 87389; 87798; 82607; 82746; 84443; 85025; 86618

== ENCOUNTER 2024-03-22 01:01 | Outpatient (CLI) | payer OTHER, SELFPAY ==
--- NOTE | 2024-03-22 10:35 | DI.MAMMO_ITS ---
Exam(s) MAMMO SCREENING EXAM: MAMMO SCREENING CLINICAL HISTORY: screening,Z12,39 TECHNIQUE: Mammograms were interpreted according to the usual protocol including computer analysis w [employer] CAD system, tomosynthesis and C-view imaging. COMPARISON: 2021 FINDINGS: The breasts are composed of scattered fibroglandular densities, Breast Density category B. No suspicious masses or suspicious microcalcifications are seen. No skin thickening or abnormal axillary lymph nodes are seen. There is a focal area of fatty tissue seen in the right axilla which could represent a lipoma. It appears unchanged from the prior exam. There has been no significant change from prior exams. IMPRESSION: BI-RADS Category 2 - Benign Findings Yearly screening mammography is recommended. Breast Density - Category B, scattered fibroglandular densities. A negative radiographic report should not delay biopsy if a dominant or clinically suspicious mass is present. Up to ten percent of cancers are not identified on mammography. A negative report may reinforce clinical impression. Adenosis and dense breasts may obscure an underlying neoplasm. False positive reports average 6 to 10%. Patient will receive a letter notifying them of these results. The
--- NOTE | 2024-03-22 12:13 | DI.US_ITS ---
Exam(s) US AXILLA RT EXAM: US AXILLA RT CLINICAL HISTORY: increase in size, uncomfortable, mass rt axilla, R22.31 TECHNIQUE: Ultrasound right axilla performed using standard protocol. COMPARISON: US SURVEY from 05/27/2011 US [facility] ULTRASOUND from 11/21/2014 US SURVEY > OR [id number] from 01/21/2015 FINDINGS: No solid or cystic masses, hypoechoic foci, areas of abnormal shadowing, or areas of skin thickening. The area of palpable abnormality appears to correspond to fatty tissue which could represent a lipoma . Approximate measurements are 2.5 by 6 by 2.5 cm. IMPRESSION: No sonographically suspicious finding. Palpable abnormality appears to correspond to fatty tissue. DATA REPOSITORY:
== END 2024-03-22 01:21 ==
LOC: DI 01:01
PROVIDERS: PCP Nurse Practitioner Family; Visit Provider Nurse Practitioner Family
DX: Z12.31 Encounter for screening mammogram for malignant neoplasm of breast (principal); R22.31 Localized swelling, mass and lump, right upper limb; R92.323 Mammographic fibroglandular density, bilateral breasts; D24.9 Benign neoplasm of unspecified breast
CPT/HCPCS: 76642; 77063; 77067

== ENCOUNTER 2024-10-19 01:57 | Outpatient (CLI) | payer OTHER, SELFPAY ==
[2024-10-19] MEDS: Methacholine 100 MG VIAL IH (15:15)
[2024-10-19] MEDS: Inhaler, Assist Device 1 EACH MC (15:15)
[2024-10-19] MEDS: Albuterol HFA 18 GM 200 PUFF INH IH (15:15)
--- NOTE | 2024-10-28 14:54 | W.PFT ---
Date of service: 10/19/24 Time of Service: 13:08 Pulmonary Function Test Result Indications: Fatigue Interpretation Spirometry: No baseline airflow limitation. There was a 7% decline in FEV1 with administration of 16mg/mL methacholine. Impression Normal spirometry and a negative methacholine challenge. Clinical Correlation therefore is recommended.
== END 2024-10-19 01:58 | disposition home or self-care (01) ==
LOC: RT 01:57
PROVIDERS: PCP Nurse Practitioner Family; Visit Provider Student in an Organized Health Care Education/Training Program
DX: R68.89 Other general symptoms and signs (principal)
CPT/HCPCS: 94070; 95070; J7674

== ENCOUNTER 2025-02-13 12:14 | Outpatient (CLI) | payer OTHER, SELFPAY ==
--- NOTE | 2025-02-13 12:00 | DI.RAD_ITS ---
Exam(s) XR CERVICAL SPINE COMP 4-5V EXAM: XR CERVICAL SPINE COMP 4-5V CLINICAL HISTORY: decreased ROM, NECK PAIN, CERVICALGIA M54.2. TECHNIQUE: 2D digital imaging was performed. COMPARISON: No exams were available for comparison FINDINGS: Five views No evidence of fracture, listhesis, nor offset of the spinal laminar line. No prevertebral soft tissue swelling. All the disc spaces exhibit normal height. No evidence of reversal of the curvature. No prevertebral soft tissue swelling. Bone density normal. No osseous lesions. No Luschka joint osteophytes. No cervical ribs. IMPRESSION: No significant radiograph findings in the cervical spine. DATA REPOSITORY: RADIATION DOSE DELIVERED:
== END 2025-02-13 12:34 ==
LOC: DI 12:14
PROVIDERS: PCP Nurse Practitioner Family; Visit Provider Nurse Practitioner Family
DX: M54.2 Cervicalgia (principal)
CPT/HCPCS: 72050

== ENCOUNTER 2025-03-05 11:04 | Outpatient (CLI) | payer OTHER, SELFPAY ==
[2025-03-05 13:13] LABS: Ferritin 287 ng/mL (8-252); Vitamin B12 411 pg/mL (193-986); Vitamin D 25 Total 36 ng/mL (30-100)
== END 2025-03-05 11:05 | disposition home or self-care (01) ==
LOC: LBO 11:04
PROVIDERS: PCP Nurse Practitioner Family; Visit Provider Internal Medicine Sleep Medicine
DX: G47.11 Idiopathic hypersomnia with long sleep time (principal); G25.81 Restless legs syndrome; R06.83 Snoring; R25.2 Cramp and spasm; M25.519 Pain in unspecified shoulder; R53.83 Other fatigue; E55.9 Vitamin D deficiency, unspecified
CPT/HCPCS: 36415; 82306; 82607; 82728

== ENCOUNTER 2025-03-14 09:15 | Outpatient (CLI) | payer OTHER, SELFPAY ==
[2025-03-14 09:00] LABS: HCT 35.7 % (36.0-46.0); HGB 11.9 g/dL (11.2-15.7); MCH 30.2 pg (27.0-33.0); MCHC 33.3 % (32.0-36.0); MCV 91 fL (80-95); MPV 10.8 fL (8.0-11.0); Platelet Count 256 10^3/uL (130-400); RBC 3.94 10^6/uL (3.93-5.22); RDW 11.6 % (11.7-14.6); RDW-SD 38.6 fL; WBC 9.71 10^3/uL (4.4-10.8)
[2025-03-14 09:48] LABS: Ferritin 288 ng/mL (8-252)
[2025-03-14 10:21] LABS: Iron 89 ug/dL (50-170); Total Iron Binding Capacity 276 ug/dL (250-450)
[2025-03-15 09:26] LABS: Transferrin 217 mg/dL (201-352)
== END 2025-03-14 09:16 | disposition home or self-care (01) ==
LOC: LBO 09:16
PROVIDERS: PCP Nurse Practitioner Family; Visit Provider Nurse Practitioner Family
DX: R79.89 Other specified abnormal findings of blood chemistry (principal)
CPT/HCPCS: 36415; 85027; 82728; 83540; 83550; 84466